=== PATIENT | male | born 1980 ===

== ENCOUNTER → 2020-11-12 | Outpatient (CLI) | payer OTHER ==
[2020-11-12 15:33] VITALS: BP 136/83
--- NOTE | 2020-11-12 15:33 | Cardiology Stress Test Report ---
Stress Test Report Date of Procedure/Referring: Date of Procedure: Nov 12, 2020 PCP Irma Butler MD Admitting Physician Indications: Chest pain Baseline Heart Rate: 86 Baseline Blood Pressure: Blood Pressure Systolic: 136 Blood Pressure Diastolic: 83 Baseline EKG: Baseline EKG: normal sinus rhythm Summary/Conclusion: Summary: In summary, the patient started exercising with a baseline heart rate, blood pressure and EKG mentioned above Patient was able to exercise for a total of 7:30minutes on Fabrice protocol, METs 9.1 Maximum heart rate 152 Maximum blood pressure 149/82 Stress EKG, Minimal nondiagnostic changes Recovery EKG , Return to baseline Conclusion: 1. Good exercise tolerance for a total of 7:30 minutes on Fabrice protocol, 9.1 METs, achieving 84 percent of maximum expected heart rate 2. Minimal nondiagnostic EKG changes with exercise returned to baseline during recovery 3. No arrhythmia was noted IRMA BUTLER MD Nov 12, 2020 15:33
== END ==
LOC: CARD 10:07
PROVIDERS: ATTEND Internal Medicine Cardiovascular Disease
DX: E78.5 Hyperlipidemia, unspecified (principal); K21.00 Gastro-esophageal reflux disease with esophagitis, without bleeding
CPT/HCPCS: 93017; 93306